=== PATIENT | male | born 1940 | race Caucasian/White ===

== ENCOUNTER 2019-03-02 23:43 | Emergency (ER) | payer MEDICARE, OTHER, SELFPAY ==
[2019-03-02 23:44] VITALS: BP 136/103; PULSE 74; RESP 16; TEMP 37.1; O2SAT 98; BMI 32.5
--- NOTE | 2019-03-03 00:03 | ED.DCSUM_ITS ---
History of Present Illness Chief Complaint: Back Narrative: Patient is a pleasant 78-year-old male who presents with chief complaint of sciatica. He does have a history of prior similar symptoms. Over the past 5 days he complains of right hip pain with radiation down the lateral leg to his foot. Pain is sharp. It is worse with prolonged standing. He did have some relief with icing. He denies any abdominal pain, urinary retention, fecal incontinence, numbness tingling or weakness. He otherwise denies any recent medical illness. No fevers. No vomiting. Past Medical History - Allergies and Home Meds Allergies/Adverse Reactions: Allergies carvedilol Allergy (Verified 03/02/19 23:44) LIGHT HEADED DIZZY SYNCOPE niacin [From Niaspan Extended-Release] Allergy (Verified 03/02/19 23:44) Swelling Primary Care Physician: Domingo Aleman MD [Primary Care Provider] - Past Medical History: - - Diabetes, hypertension, hyperlipidemia Surgical History: - - Heel spur removal. Smoking Status: Never smoker - Family History Maternal Family History: Reports: Heart Disease Paternal Family History: Reports: Diabetes, Heart Disease Review of Systems All systems negative except as indicated General: Denies: Fever Eyes: Denies: Visual changes - bilaterally ENT: Denies: Bilateral ear pain Cardiovascular: Denies: Chest pain Respiratory: Denies: Dyspnea Gastrointestinal: Denies: Abdominal pain, Vomiting, Diarrhea, Constipation Musculoskeletal: Reports: Extremity Pain Neurological: Denies: Headache Hematologic: Denies: Easy bruising Allergy: Denies: Uticaria Physical Exam Vital Signs/Narrative: Vital Signs Temp Pulse Resp BP Pulse Ox 03/02/19 23:44 98.7 F 74 16 136/103 H 98 Inital Vital Signs reviewed: Yes General: Well nourished, Well developed Head: Normocephalic Eyes: EOMI ENT: Moist mucous membranes Neck: Supple Cardiovascular: Regular rate Respiratory: No distress Abdomen: Soft, Nontender Back: Nontender Extremities: - - No reproducible extremity pain, right leg is warm with brisk capillary refill normal sensation to light touch normal strength with dorsiflexion, plantarflexion, extensor hallucis longus, negative straight leg raise Skin: Normal color Neurological: Alert Psychological: Normal affect Diagnostic/Tx/Re-eval - Medical Decision Making Patient's presentation is consistent with a lumbar radiculopathy. He already takes naproxen for arthritis. Will place on a prednisone burst and also treat with tramadol. Patient is diabetic. He has a glucometer but he is not even dias re if it works as he has not used it in years. He was advised of signs and symptoms of hypoglycemia to monitor for and advised if he develops any of the symptoms that his blood sugar checked. We also discussed signs and symptoms that should prompt return to the emergency department for reevaluation including but not limited to symptoms such as paresthesias or weakness. All questions answered at bedside. Patient agreeable to plan. Patient discharged. ED Disposition - Plan for ED Patient: Disposition: Home or Assisted Living Diagnosis: Lumbar radiculopathy Instructions: BACK PAIN w/ SCIATICA Prescriptions: predniSONE tablet 60 mg PO DAILY #12 tab Prescription Printed traMADol [Ultram] 50 mg PO Q6H PRN 3 Days #12 tab PRN Reason: Pain Prescription Printed Referrals: Domingo Aleman MD [Primary Care Provider] -
[2019-03-03] MEDS: traMADol 50 MG Tablet PO (00:06)
[2019-03-03] MEDS: predniSONE 20 MG Tablet 60 MG PO (00:07)
== END 2019-03-03 00:18 | disposition home or self-care (01) ==
LOC: ED 03-03 00:16
PROVIDERS: Emergency Provider Emergency Medicine; Family Provider Family Medicine; PCP Family Medicine
DX: M54.16 Radiculopathy, lumbar region (principal); M25.551 Pain in right hip; E11.9 Type 2 diabetes mellitus without complications; I10 Essential (primary) hypertension; E78.5 Hyperlipidemia, unspecified; Z79.84 Long term (current) use of oral hypoglycemic drugs; Z79.82 Long term (current) use of aspirin; Z79.899 Other long term (current) drug therapy
CPT/HCPCS: 99283

== ENCOUNTER 2019-10-07 18:14 | Emergency (ER) | payer MEDICARE, OTHER, SELFPAY ==
[2019-10-07 18:16] VITALS: BP 133/69; PULSE 68; PULSE 69; RESP 17; TEMP 36.4; O2SAT 98; O2SAT 99; BMI 31.7
[2019-10-07 19:53] LABS: Bacteria 0 SEEN /hpf (None Seen); Mucous, Urine 0 SEEN /hpf (<or=2+); Red Blood Cells-Urine 0 SEEN /hpf (0-5); Squamous Epithelial Cells - UA 0 SEEN /hpf (0-5); White Blood Cells 0 SEEN /hpf (0-5)
[2019-10-07 19:55] LABS: Color, Urine Yellow (Yellow); Glucose, Dipstick Normal (Normal); Ketone-Dipstick Negative (Negative); Leukocyte Esterase-Dipstick Negative /ul (Negative); Nitrite-Dipstick Negative (Negative); Occult Blood-Urine Negative /ul (Negative); Protein-Dipstick Negative (Negative); Urine Bilirubin Dipstick Negative (Negative); Urine Clarity Clear (Clear); Urine Urobilinogen Normal (Normal)
--- NOTE | 2019-10-07 20:01 | ED.VIS.GEN ---
History of Present Illness Chief Complaint: Flank Pain Informant: Patient Narrative: 79-year-old for right-sided back pain. He is concerned that he might have a kidney stone. He has a distant history of this. He states that this is all occurred when he tried to bend over. He did not hear any pops or cracks. He states that the pain is local in the right lumbar paraspinal musculature. He denies any urinary symptoms. He has no diarrhea or constipation. He is not had fever, chills. 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 Smoking Status: Never smoker - Family History Maternal Family History: Reports: Heart Disease Paternal Family History: Reports: Diabetes, Heart Disease Review of Systems General: Denies: Chills, Fever, Sweats Eyes: Denies: Visual changes - bilaterally, Diplopia ENT: Denies: Rhinorrhea, Sore throat Cardiovascular: Denies: Chest pain, Palpitations Respiratory: Denies: Dyspnea, Cough, Dyspnea on exertion Genitourinary: Denies: Dysuria, Hematuria, Frequency Musculoskeletal: Reports: Back pain. Denies: Neck pain, Extremity Pain Skin: Denies: Rash, Wounds Neurological: Denies: Headache, Weakness Psych: Denies: Depression, Anxiety Physical Exam Vital Signs/Narrative: Vital Signs Temp Pulse Resp BP Pulse Ox 10/07/19 18:16 97.6 F L 69 17 133/69 H 99 Inital Vital Signs reviewed: Yes General: Well nourished, Well developed, No Acute Distress Head: Normocephalic, Atraumatic ENT: Moist mucous membranes, No rhinorrhea Cardiovascular: Regular rate, Regular rhythm Respiratory: No distress, CTA bilaterally Abdomen: Soft, Nontender, Nondistended Back: - - Is to palpation right lumbar paraspinal musculature. No CVA tenderness. Extremities: Nontender, No edema Skin: Normal color, No rash Neurological: Alert, Oriented x3 Psychological: Normal affect Diagnostic/Tx/Re-eval Clinical Impression(s) from Imaging Studies Abdomen/Pelvis CT 10/07/19 20:35 IMPRESSION: No evidence of appendicitis, acute intestinal pathology, or acute obstructive uropathy. Electronically Signed: Estuardo Diaz MD at 20:51 EDT Tel , Service support , Laboratory Data 10/07/19 10/07/19 10/07/19 19:40 19:45 19:45 WBC 5.5 RBC 3.63 L Hgb 12.3 L Hct 36.7 L MCV 101.1 H MCH 33.9 H MCHC 33.5 RDW Std Deviation 51.8 H RDW Coeff of Gabe 14.1 Plt Count 257 MPV 10.3 Immature Gran % (Auto) 0.200 Neut % (Auto) 62.7 Lymph % (Auto) 24.1 [place] % (Auto) 7.7 Eos % (Auto) 4.9 Baso % (Auto) 0.4 Absolute Neuts (auto) 3.4 Absolute Lymphs (auto) 1.32 Nucleated RBC % 0 Sodium 136 Potassium 4.1 Chloride 103 Carbon Dioxide 29.0 Anion Gap 4 L BUN 23 H Creatinine 1.35 H Estim Creat Clear Calc 45.10 Est GFR (MDRD) Af Amer 66 Est GFR (MDRD) Non-Af 54 L BUN/Creatinine Ratio 17.0 Glucose 126 H Calcium 8.8 Urine Color Yellow Urine Clarity Clear Urine pH 5.0 Ur Specific [place] 1.020 Urine Protein Negative Urine Glucose (UA) Normal Urine Ketones Negative Urine Occult Blood Negative Urine Nitrite Negative Urine Bilirubin Negative Urine Urobilinogen Normal Ur Leukocyte Esterase Negative Urine RBC 0 SEEN Urine WBC 0 SEEN Ur Squamous Epith Cells 0 SEEN Urine Bacteria 0 SEEN Urine Mucus 0 SEEN - Medical Decision Making Patient presents with back pain which he states he believes is a kidney stone. On examination he does have tenderness to palpation in the right lumbar paraspinal musculature but he does not have CVA tenderness. His renal function is normal. Urinalysis is negative for blood or infection. He did have CT abdomen pelvis without contrast and this does not show any acute process. I feel is pain is likely musculoskeletal. He is counseled on Tylenol ice and stretching. Also him that if his pain is not improving he should follow-up with his PCP to get into physical therapy. He is amenable to this plan. He has no red flag symptoms for cauda equina drome or infectious etiology. Will be discharged home in stable condition. Impression: 1. Lumbar strain ED Disposition - Plan for ED Patient: Disposition: Home or Assisted Living Instructions: ED Flank Pain Uncertain Cause, ED LUMBAR SPRAIN/STRAIN Referrals: Domingo Aleman MD [Primary Care Provider] -
[2019-10-07 20:08] LABS: Absolute Lymphocyte Count 1.32 X10^3/uL (0.83-4.51); Absolute Neutrophil Count 3.4 X10^3/uL (2.0-7.7); Basophil# 0.02 X10^3/uL; Basophil% 0.4 % (0-1); Eosinophil# 0.27 X10^3/uL; Eosinophils% 4.9 % (0-5); Hematocrit 36.7 % (40-54); Hemoglobin 12.3 g/dL (13.0-16.5); Lymphocyte # 1.32 X10^3/ul (4.0); Lymphocyte % 24.1 % (19-41); Mean Corp Hgb Conc 33.5 g/dL (32-36); Mean Corpuscular Hgb 33.9 pg (27.0-32.0); Mean Corpuscular Volume 101.1 fL (80-94); Mean Platelet Vol. 10.3 fl (6.2-12.0); Monocyte# 0.42 X10^3/uL; Monocyte% 7.7 % (0-10); NRBC Flagged by Analyzer 0 % (0-5); Neutrophil # 3.43 X10^3/uL (2.7-7.7); Neutrophil % 62.7 % (47-70); Platelet Count 257 K/mm3 (150-450); RBC Distribution Width CV 14.1 % (11.6-14.6); RBC Distribution Width SD 51.8 fl (35.1-43.9); Red Blood Count 3.63 M/mm3 (4.6-6.2); White Blood Count 5.5 K/mm3 (4.4-11.0)
[2019-10-07 20:25] LABS: Anion Gap 4 (5-15); BUN 23 mg/dL (7-18); Calcium,Total 8.8 mg/dL (8.5-10.1); Chloride 103 mmol/L (98-107); Creatinine, Serum 1.35 mg/dL (0.70-1.30); EST Glomerular Filtration Rate 54 mL/min (>60); Est Glom Filt Rate - Afr Amer 66 mL/min (>60); Glucose 126 mg/dL (74-106); Potassium 4.1 mmol/L (3.5-5.1); Sodium Level 136 mmol/L (136-145)
[2019-10-07] MEDS: Ondansetron 4 MG/2 ML Vial IM (20:30)
[2019-10-07] MEDS: Ketorolac 15 MG/ML Vial IV (20:30)
--- NOTE | 2019-10-07 20:35 | CT_ITS ---
STUDY: CT ABDOMEN AND PELVIS WITHOUT CONTRAST REASON FOR EXAM: Male, 79 years old. RIGHT FLANK PAIN. hx of kidney stones RADIATION DOSAGE (If Supplied By Facility): CTDIvol = ( 13.60 ) mGy, DLP = ( 760.92 ) mGycm TECHNIQUE: Transaxial images were obtained from the dome of the diaphragm to the symphysis pubis without oral contrast, and without intravenous contrast. Sagittal and coronal images were reconstructed. Individualized dose optimization techniques were used for this CT. COMPARISON: None. FINDINGS: The visualized lung bases are unremarkable. The visualized portions of the heart are within normal limits. Normal liver. Normal gallbladder and extrahepatic biliary system. Normal spleen. Normal pancreas. Normal bilateral adrenal glands. Normal right kidney. Normal left kidney. Normal visualized stomach. Normal small intestine. Normal colon. The appendix is visualized and appears normal. Normal abdominal aorta. Normal inferior vena cava. Normal retroperitoneum. Normal urinary bladder. Prostatomegaly and prostate calcifications. Normal abdominal wall. There are diffuse degenerative changes of the visualized lumbar spine. CT/Abdomen/Pelvis without Cont IMPRESSION: No evidence of appendicitis, acute intestinal pathology, or acute obstructive uropathy. Electronically Signed: Estuardo Diaz MD at 20:51 EDT Tel , Service support ,
[2019-10-07 21:20] VITALS: BP 133/69; PULSE 70; RESP 17; O2SAT 99
== END 2019-10-07 21:21 | disposition home or self-care (01) ==
PROVIDERS: Emergency Provider Student in an Organized Health Care Education/Training Program; PCP Family Medicine
DX: S39.012A Strain of muscle, fascia and tendon of lower back, initial encounter (principal); X50.1XXA Overexertion from prolonged static or awkward postures, initial encounter; Y93.9 Activity, unspecified; Y92.9 Unspecified place or not applicable; Y99.9 Unspecified external cause status; E11.9 Type 2 diabetes mellitus without complications; Z79.84 Long term (current) use of oral hypoglycemic drugs; Z79.82 Long term (current) use of aspirin; Z79.899 Other long term (current) drug therapy; Z79.4 Long term (current) use of insulin; Z87.442 Personal history of urinary calculi
CPT/HCPCS: 74176; 80048; 81001; 85025; 96361; 96372; 96374; 99283; J7030; A4216; J2405

== ENCOUNTER 2023-10-07 22:23 | Observation (INO) | payer MEDICARE, OTHER, SELFPAY ==
[2023-10-07 22:24] VITALS: BP 161/71; PULSE 70; RESP 18; TEMP 36.4; O2SAT 100; BMI 29.8
--- NOTE | 2023-10-07 22:30 | EKG12_ITS ---
Test Reason : CP Blood Pressure : / mmHG Vent. Rate : 071 BPM Atrial Rate : 071 BPM P-R Int : 206 ms QRS Dur : 126 ms QT Int : 416 ms P-R-T Axes : 074 -59 006 degrees QTc Int : 452 ms Normal sinus rhythm Left axis deviation Right bundle branch block Minimal voltage criteria for LVH, may be normal variant ( R in aVL ) Inferior infarct , age undetermined Abnormal ECG Confirmed by ANDRES SPARROW, LORI ([id number]), script editor CAM NAIR ([id number]) on 10/10/2023 6:40:03 AM Referred By: LULU Confirmed By:YVONNE CAMPOS MD
[2023-10-07 22:55] LABS: Absolute Lymphocyte Count 2.89 X10^3/uL (0.83-4.51); Basophil# 0.03 X10^3/uL; Basophil% 0.4 % (0-1); Eosinophil# 0.43 X10^3/uL; Eosinophils% 6.4 % (0-5); Hematocrit 34.8 % (40-54); Hemoglobin 11.9 g/dL (13.0-16.5); Lymphocyte # 2.89 X10^3/ul (0.83-4.51); Lymphocyte % 42.7 % (19-41); Mean Corp Hgb Conc 34.2 g/dL (32-36); Mean Corpuscular Hgb 34.6 pg (27.0-32.0); Mean Corpuscular Volume 101.2 fL (80-94); Mean Platelet Vol. 10.5 fl (6.2-12.0); Monocyte# 0.43 X10^3/uL; Monocyte% 6.4 % (0-10); NRBC Flagged by Analyzer 0 % (0-5); Neutrophil # 2.98 X10^3/uL (2.7-7.7); Platelet Count 198 K/mm3 (150-450); RBC Distribution Width CV 14.2 % (11.6-14.6); RBC Distribution Width SD 52.8 fl (35.1-43.9); Red Blood Count 3.44 M/mm3 (4.6-6.2); White Blood Count 6.8 K/mm3 (4.4-11.0)
--- NOTE | 2023-10-07 22:58 | ED.VIS.CHEST ---
HPI History of Present Illness Chief Complaint: Chest Pain Narrative Narrative: 83-year-old male past medical history of hypertension and diabetes, but was taken off his diabetic medication, presents with chest pain that began at around 5:30 in the evening. He states that he ate dinner around 430 then an hour later began having indigestion type symptoms and left-sided chest pain. He states the pain radiates to his left shoulder. He denies any nausea or vomiting, no diaphoresis or shortness of breath. No radiation to his back. However, his states that he has been having intermittent episodes of lightheadedness, and has been having problems with chest pain recently that has been intermittent. His blood pressure was as high as the 170s systolic today. As she states he has been having problems with a lightheadedness, dizziness, and chest pain previously, she called the squad this evening. He has not had a stress test recently, and he denies having any problems with coronary artery disease or stenting. No exacerbating or alleviating factors. [facility] Medical History Diabetes Home Medications ?Medication ?Instructions ?Recorded ?Last Taken ?Type allopurinol 300 mg tablet 300 mg PO DAILY gout 06/03/13 06/07/16 History simvastatin 40 mg tablet 40 mg PO QHS cholesterol 06/03/13 06/07/16 History naproxen 250 mg tablet 375 mg PO BID PRN PRN Pain 06/04/14 Unknown History aspirin 81 mg chewable tablet 81 mg PO DAILY@0800 06/08/16 06/08/16 History cyanocobalamin (vitamin B-12) 1,000 mcg PO DAILY 06/08/16 06/07/16 History 1,000 mcg tablet (Vitamin B-12) lisinopril 20 1 ea PO DAILY 06/08/16 06/08/16 History mg-hydrochlorothiazide 12.5 mg tablet (Zestoretic) omega-3 fatty acids-fish oil 340 1 ea PO DAILY 03/03/19 Unknown History mg-1,000 mg capsule Allergy/AdvReac Type Severity Reaction Status Date / Time carvedilol Allergy LIGHT Verified 10/07/23 22:27 HEADED DIZZY SYNCOPE niacin (From Niaspan Allergy Swelling Verified 10/07/23 22:27 Extended-Release) Social History Smoking Status: Never smoker ROS ROS ED ROS Narrative Constitutional: No fever, no chills. Elevated blood pressure this evening. HEENT: No sore throat. No neck pain. No loss of vision. No rhinorrhea. Cardiovascular: Positive chest pain radiating to left shoulder, left pectoral pain. Indigestion type symptoms. No palpitations. No pedal edema. Respiratory: No cough, no shortness of breath. Abdominal: No abdominal pain. No nausea. No vomiting. Genitourinary: No dysuria. No hematuria. Musculoskeletal: No myalgias. Left shoulder arthralgias. Neurologic: No headaches. No dizziness. Positive intermittent lightheadedness. Skin: No rash. No change in color. Psychiatric: No depression. No anxiety. EXAM Physical Exam Narrative Exam Narrative: Afebrile. Vital signs noted. HEENT: Normocephalic. Atraumatic. PERRL, EOMI. Neck soft and supple. No point tenderness or step off. Cardiovascular: Regular rate and rhythm. No murmurs, rubs, or gallops appreciated. Respiratory: No tachypnea. Lungs clear to auscultation bilaterally. Gastrointestinal: Abdomen soft, nontender, with normoactive bowel sounds. No rebound or guarding. Neurological: Awake. Alert. Nonfocal, nonlateralizing. Skin: No rash. Normal color. No pallor. Musculoskeletal: No pedal edema. Full range of motion extremities. Const Vital Signs: 10/07/23 22:24 10/07/23 22:49 10/07/23 23:24 Temperature 97.6 F L Temperature Source Oral Pulse Rate 70 65 Respiratory Rate 18 17 Blood Pressure 161/71 H 141/61 H Blood Pressure Mean 101 87 Pulse Ox 100 99 Oxygen Delivery Method Room Air Room Air Room Air 10/08/23 00:00 Temperature Temperature Source Pulse Rate 63 Respiratory Rate 17 Blood Pressure 131/69 H Blood Pressure Mean 87 Pulse Ox 99 Oxygen Delivery Method Heart Score History: Moderately Suspicious ECG: Normal Age: >/= 65 years Risk Factors: 1 or 2 Risk Factors Troponin: </= Normal Limit Score: 4 MDM MDM MDM Narrative Medical decision making narrative: Concern is for ACS versus pneumonia versus pneumothorax versus musculus skeletal shoulder pain. Patient does have risk factors. He has elevated blood pressure here in the emergency department of 161/71. EKG was obtained and interpreted by myself independently as normal sinus rhythm at 71 bpm with a right bundle branch block but no acute ST changes. No STEMI. Patient was administered aspirin. Chest pain workup was pursued. I reviewed his prior ED visits, the last time he had chest pain and he had a stress test was not 2013, approximately 10 years ago. I reviewed his laboratory work and he has normal white count of 6.8 with hemoglobin 11.9, platelet count normal at 198. He will be given nitroglycerin as needed as well to lower his blood pressure and treat his chest pain. In review of his remaining laboratory work his glucose is elevated at 115 with sodium slightly low at 134 which I think is nonspecific, potassium 3.8, chloride normal at 101. BUN normal at 16 with creatinine 1.07. Magnesium slightly low at 1.4. Initial high-sensitivity troponin is 58. Chest x-ray 1 view interpreted by myself independently shows no evidence of an acute process. I reviewed the radiology report which confirms my independent interpretation. His is concerned because he has been lightheaded and reportedly had a syncopal episode recently. Given his age and risk factors and the fact that he has not had stress testing in 10 years, I will discuss patient with Dr. Gauthier for observation. Patient is in stable condition. History & Record Review Discussion w/independent historian: Patient Additional record(s) reviewed:: Prior ED visit (No stress test since 2013) Lab Data Attestation: I reviewed the patient's lab results. Labs: Laboratory Results - last 24 hr 10/07/23 22:33 WBC 6.8 RBC 3.44 L Hgb 11.9 L Hct 34.8 L MCV 101.2 H MCH 34.6 H MCHC 34.2 RDW Std Deviation 52.8 H RDW Coeff of Gabe 14.2 Plt Count 198 MPV 10.5 Immature Gran % (Auto) 0.100 Neut % (Auto) 44.0 L Lymph % (Auto) 42.7 H [place] % (Auto) 6.4 Eos % (Auto) 6.4 H Baso % (Auto) 0.4 Absolute Neuts (auto) 3.0 Absolute Lymphs (auto) 2.89 Nucleated RBC % 0 Sodium 134 L Potassium 3.8 Chloride 101 Carbon Dioxide 26.0 Anion Gap 7 BUN 16 Creatinine 1.07 Estim Creat Clear Calc 61.40 Est GFR (MDRD) Af Amer 85 Est GFR (MDRD) Non-Af 70 BUN/Creatinine Ratio 15.0 Glucose 115 H Calcium 8.3 L Magnesium 1.4 L Troponin I High Sens 58 Radiography Diagnostic Testing: Clinical Impression(s) from Imaging Studies Chest X-Ray 10/07/23 23:05 IMPRESSION: No acute radiographic abnormalities. Electronically Signed: Lowell Brandt MD at 23:29 EDT , Discharge Plan Dx/Rx/DC Orders Clinical Impression: Chest pain, Hypertension Disposition Disposition: Acute Care [facility]
--- NOTE | 2023-10-07 23:05 | RAD_ITS ---
INDICATION: chest pain EXAMINATION/TECHNIQUE: X-RAY - XR Chest 1 View COMPARISON: 06/04/2014. FINDINGS: The lungs are clear. Tortuous and calcified thoracic aorta. The heart is mildly enlarged. No pleural effusion or pneumothorax. Degenerative changes of the thoracic spine. RAD/Chest 1 View (Portable) IMPRESSION: No acute radiographic abnormalities. Electronically Signed: Lowell Brandt MD at 23:29 EDT ,
[2023-10-07 23:14] LABS: Anion Gap 7 (5-15); BUN 16 mg/dL (7-18); Calcium,Total 8.3 mg/dL (8.5-10.1); Chloride 101 mmol/L (98-107); Creatinine, Serum 1.07 mg/dL (0.70-1.30); EST Glomerular Filtration Rate 70 mL/min (>60); Est Glom Filt Rate - Afr Amer 85 mL/min (>60); Glucose 115 mg/dL (74-106); Magnesium 1.4 mg/dL (1.6-2.6); Potassium 3.8 mmol/L (3.5-5.1); Sodium Level 134 mmol/L (136-145); Troponin-I HS (w/2H Reflex) 58 pg/mL (3.0-78.0)
[2023-10-07 23:24] VITALS: BP 141/61; PULSE 65; RESP 17; O2SAT 99
[2023-10-07] MEDS: Aspirin 81 MG TAB.CHEW 324 MG PO (23:26)
[2023-10-08] VITALS (8 sets, daily range): BP systolic 129–154; BP diastolic 58–72; PULSE 60–72; RESP 14–19; TEMP 36.6–37; O2SAT 99–100; BMI 29.9
--- NOTE | 2023-10-08 00:29 | PCM.HP.STD ---
HPI - General General Date of Admission: 10/08/23 Date of Service: 10/08/23 Chief Complaint: Chest pain HPI Narrative VERO PIMENTEL, is a 83 M who presented to the emergency department at [facility] on 10/07/2023 with a chief complaint of chest pain. He reported that it started about 6 PM. He had eaten at 5 PM and the sensation was an indigestion type feeling. He noted that it did radiate into his left arm and he actually is denying any actual chest pain more just indigestion with left arm pain. He indicated it felt like a pulled muscle. The pain there is now resolved and he is complaining of only some mild pain in his left shoulder blade at this time. Pain is not pleuritic. He does have a history of diabetes, hypertension, and hyperlipidemia. He has noted that his legs have been a little bit swollen over the last 2 to 4 weeks and he is typically not swollen and that his blood pressure has been more labile and difficult to control lately. He also indicates that he has been more fatigued lately. He states he is remotely had a cardiac catheterization at which time he was told he had clean coronaries and should never have a cardiac problem. He states this was done over at one of the [facility] but it has been a long time. He is diet controlled with regards to his diabetes. Patient did have an abnormal stress test in 2013. Current vital signs show temperature of 97.8, blood pressure 129/59 however he was hypertensive on presentation, pulse is 62, respirations are 19 and oxygen saturation is 100% on room air. His CBC is overall unremarkable. Chemistry panel shows mild hyponatremia with a sodium of 134, normal creatinine and a serum glucose of 115. Magnesium level is 1.4. Initial troponin was 58. EKG is normal sinus rhythm with normal intervals and a right bundle branch block with poor R wave progression showing left axis deviation but no ST-T wave changes concerning for acute ischemia. Chest x-ray is unremarkable for any acute findings. Given his symptomatology and his past medical history it was felt prudent to admit him as observation for stress test as long as his enzymes did escalate. [facility] Medical History Dyslipidemia GERD (gastroesophageal reflux disease) HTN (hypertension) Diabetes Home Medications ?Medication ?Instructions ?Recorded ?Last Taken ?Type allopurinol 300 mg tablet 300 mg PO DAILY gout 06/03/13 06/07/16 History simvastatin 40 mg tablet 40 mg PO QHS cholesterol 06/03/13 06/07/16 History naproxen 250 mg tablet 375 mg PO BID PRN PRN Pain 06/04/14 Unknown History aspirin 81 mg chewable tablet 81 mg PO DAILY@0800 06/08/16 06/08/16 History cyanocobalamin (vitamin B-12) 1,000 mcg PO DAILY 06/08/16 06/07/16 History 1,000 mcg tablet (Vitamin B-12) lisinopril 20 1 ea PO DAILY 06/08/16 06/08/16 History mg-hydrochlorothiazide 12.5 mg tablet (Zestoretic) omega-3 fatty acids-fish oil 340 1 ea PO DAILY 03/03/19 Unknown History mg-1,000 mg capsule Allergy/AdvReac Type Severity Reaction Status Date / Time carvedilol Allergy LIGHT Verified 10/07/23 22:27 HEADED DIZZY SYNCOPE niacin (From Niaspan Allergy Swelling Verified 10/07/23 22:27 Extended-Release) Family History (Updated 10/08/23 @ 00:[address] Roseanna Gauthier DO) Other Diabetes Hypertension no surgical history Social History (Updated 10/08/23 @ 00:[address] Roseanna Gauthier DO) household members: spouse housing: house Smoking Status: Never smoker alcohol intake: never substance use type: does not use ROS Constitutional Constitutional: Reports fatigue; Denies anorexia, change in weight, chills, fever(s), malaise, night sweats, weakness or other Eyes Eyes: Denies blurry vision, change in eye color, change in vision, discharge from eye(s), double vision, erythema, eye pain, loss of vision or other ENT HEENT: Denies abnormal hearing, dysphagia, ear pain, epistaxis, headache(s), hearing loss, nasal congestion, nasal discharge, post nasal drip, sinus pressure, sore throat or other Cardiovascular Cardiovascular: Reports chest pain and edema; Denies claudication, dyspnea on exertion, lightheadedness, orthopnea, palpitations, paroxysmal nocturnal dyspnea, rapid heart rate, syncope or other Respiratory/Chest Respiratory/Chest: Denies cough, dyspnea, excessive phlegm production, hemoptysis, productive cough, shortness of breath at rest, shortness of breath with exertion, wheezing or other Gastrointestinal Gastrointestinal: Reports dyspepsia; Denies abdominal pain, coffee ground emesis, constipation, diarrhea, hematemesis, hematochezia, loose stools, melena, nausea, vomiting or other Genitourinary Genitourinary: Denies burning urination, difficulty urinating, dysuria, hematuria, nocturia, urinary frequency, urinary hesitancy, urinary incontinence, urinary urgency or other Musculoskeletal Musculoskeletal: Reports back pain; Denies arthralgias, joint pain, joint stiffness, joint swelling, myalgias, neck pain or other Neurologic Neurologic: Denies abnormal gait, abnormal speech, confusion, disequilibrium, dizziness, focal weakness, headache(s), numbness, paresthesias, seizure-like activity, seizures, syncope, tingling, tremor(s) or other Psychiatric Psychiatric: Denies anxiety, depression, homicidal ideation, suicidal ideation or other Endocrine Endocrinology: Denies change in body appearance, cold intolerance, excessive sweating, heat intolerance, polydipsia, polyuria or other Hematologic/Lymphatic Hematologic/Lymphatic: Denies anemia, easy bleeding, easy bruising, lymphadenopathy or other Allergic/Immunologic Allergic/Immunologic: Denies rhinitis, hives, eczemia, asthma or other Vital Signs Vital Signs Vital Signs: 10/07/23 22:24 10/07/23 22:49 10/07/23 23:24 Temperature 97.6 F L Temperature Source Oral Pulse Rate 70 65 Respiratory Rate 18 17 Blood Pressure 161/71 H 141/61 H Blood Pressure Mean 101 87 Pulse Ox 100 99 Oxygen Delivery Method Room Air Room Air Room Air 10/08/23 00:00 Temperature Temperature Source Pulse Rate 63 Respiratory Rate 17 Blood Pressure 131/69 H Blood Pressure Mean 87 Pulse Ox 99 Oxygen Delivery Method Weight Weight: 94.4 kg Body Mass Index (BMI) 29.8 Physical Exam Const alert, oriented x3, no apparent distress, healthy appearing and well nourished; Negative for average body habitus Constitutional Narrative: Overweight, elderly, white male, lying in bed, appears comfortable, nontoxic General Appearance: cooperative HEENT normocephalic, head/scalp atraumatic and moist oral mucous membranes; Negative for hearing grossly normal bilaterally HEENT Narrative: Mild hearing loss, Mallampati is 2, no thrush, dentition is poor Eyes PERRL, EOMs intact bilaterally and conjunctivae normal Eyes Narrative: No scleral icterus Neck no lymphadenopathy and supple Neck Narrative: Trachea midline, no thyroid enlargement Resp normal respiratory effort, no retractions, no use of accessory muscles and clear to auscultation bilaterally Auscultation: Negative for rales, rhonchi or wheezes Cardio regular rate, regular rhythm, S1 normal heart sound, S2 normal heart sound, no murmurs, no rub, no gallops and no clicks GI normal to inspection, nondistended, normoactive bowel sounds, soft to palpation and non-tender Extremity Extremity Narrative: 1+ bilateral lower extremity pitting edema, no cyanosis or clubbing Skin no rashes or lesions noted, no wounds, skin turgor normal, no jaundice, no petechiae and no mottling Neuro oriented x3, CN's II-XII intact bilaterally, moves all extremities and no focal motor deficits Speech: speech normal Psych affect normal Psych Narrative: Very pleasant, eye contact is good, patient interacts appropriately Results Lab / Micro Data 10/07/23 22:33 10/07/23 22:33 Labs: Laboratory Results - last 24 hr 10/07/23 22:33: WBC 6.8, RBC 3.44 L, Hgb 11.9 L, Hct 34.8 L, MCV 101.2 H, MCH 34.6 H, MCHC 34.2, RDW Std Deviation 52.8 H, RDW Coeff of Gabe 14.2, Plt Count 198, MPV 10.5, Immature Gran % (Auto) 0.100, Neut % (Auto) 44.0 L, Lymph % (Auto) 42.7 H, [place] % (Auto) 6.4, Eos % (Auto) 6.4 H, Baso % (Auto) 0.4, Absolute Neuts (auto) 3.0, Absolute Lymphs (auto) 2.89, Nucleated RBC % 0, Sodium 134 L, Potassium 3.8, Chloride 101, Carbon Dioxide 26.0, Anion Gap 7, BUN 16, Creatinine 1.07, Estim Creat Clear Calc 61.40, Est GFR (MDRD) Af Amer 85, Est GFR (MDRD) Non-Af 70, BUN/Creatinine Ratio 15.0, Glucose 115 H, Calcium 8.3 L, Magnesium 1.4 L, Troponin I High Sens 58 Imaging Radiology Impression Chest X-Ray 10/07/23 23:05 IMPRESSION: No acute radiographic abnormalities. Electronically Signed: Lowell Brandt MD at 23:29 EDT , Assessment & Plan Assessment/Plan (1) Chest pain: (2) Hypomagnesemia: (3) Edema: (4) Fatigue: PLAN: Plan Chest pain -Now resolved -Has had previous abnormal stress test in 2013--> will repeat for comparison and if any changes may need further workup -Did have previous cardiac catheterization at [facility] at that time with no found obstructive disease -Cycle cardiac enzymes -Continue home aspirin -Hold off on beta-stephan now as patient has previous adverse reaction to carvedilol -Continue home lisinopril/HCTZ -Diabetes is diet controlled -Will check hemoglobin A1c -Continue home statin -Check lipids -If cardiac enzymes trend up may need cardiology involvement but for now we will plan on stress test Edema -New within the last 2 to 4 weeks -Check echocardiogram -May be related to the above Hypomagnesemia -2 g mag bolus -Recheck in a.m. DM-2 -Diet controlled -N.p.o. for now for stress test in a.m. -When diet starts we will start cardiac/carb controlled diet Essential hypertension/hyperlipidemia -Continue home antihypertensives -Continue home statin -Workup as above History of gout -Continue home allopurinol DVT prophylaxis -Subcu Lovenox 40 mg daily CODE STATUS Full but unverified Charges/Coding Visit Charges Inpatient E&M: 35552 Init Hosp L2
[2023-10-08 00:42] LABS: Reflex Troponin-HS? (from REC) Y
[2023-10-08 01:04] LABS: Troponin-I HS 64 pg/mL (3.0-78.0)
--- NOTE | 2023-10-08 01:13 | EKG12_ITS ---
Test Reason : CP ADMISSION Blood Pressure : / mmHG Vent. Rate : 068 BPM Atrial Rate : 068 BPM P-R Int : 232 ms QRS Dur : 152 ms QT Int : 448 ms P-R-T Axes : 066 -64 063 degrees QTc Int : 476 ms Sinus rhythm with 1st degree A-V block Right bundle branch block Left anterior fascicular block Bifascicular block Abnormal ECG When compared with ECG of 07-OCT-2023 22:26, MANUAL COMPARISON REQUIRED, DATA IS UNCONFIRMED Confirmed by ANDRES SPARROW, LORI ([id number]), newspaper editor CAM NAIR ([id number]) on 10/10/2023 7:19:27 AM Referred By: DERRICK Confirmed By:YVONNE CAMPOS MD
[2023-10-08] MEDS: Magnesium Sulfate 2 GM in Dextrose 5%-Water (100mL Bag) 100 ML IV (01:42)
[2023-10-08 01:47] LABS: Hemoglobin A1c 5.8 % (3.8-5.6)
[2023-10-08 04:26] LABS: Hematocrit 31.6 % (40-54); Hemoglobin 10.9 g/dL (13.0-16.5); Mean Corp Hgb Conc 34.5 g/dL (32-36); Mean Corpuscular Hgb 34.5 pg (27.0-32.0); Mean Platelet Vol. 10.1 fl (6.2-12.0); Platelet Count 183 K/mm3 (150-450); Red Blood Count 3.16 M/mm3 (4.6-6.2); White Blood Count 6.3 K/mm3 (4.4-11.0)
[2023-10-08 04:44] LABS: Troponin-I HS 86 pg/mL (3.0-78.0)
[2023-10-08 04:52] LABS: AST(SGOT) 31 U/L (15-37); Alanine Aminotransfer ALT/SGPT 26 U/L (16-61); Albumin, Serum 2.7 g/dL (3.2-5.0); Alkaline Phosphatase 42 U/L (45-117); Anion Gap 6 (5-15); BUN 16 mg/dL (7-18); BUN/Creat Ratio 15.1 RATIO (10-20); Chloride 103 mmol/L (98-107); Cholesterol 85 mg/dL (200); Creatinine, Serum 1.06 mg/dL (0.70-1.30); EST Glomerular Filtration Rate 71 mL/min (>60); Est Glom Filt Rate - Afr Amer 86 mL/min (>60); Globulin 2.7 g/dL (2.2-4.2); Glucose 122 mg/dL (74-106); High Density Lipoprotein 33 mg/dL; Magnesium 1.9 mg/dL (1.6-2.6); Phosphorus 3.2 mg/dL (2.5-4.9); Potassium 3.6 mmol/L (3.5-5.1); Protein, Total 5.4 g/dL (6.4-8.2); Sodium Level 134 mmol/L (136-145); Triglycerides 84 mg/dL; Very Low Density Lipoprotein 17 mg/dL (5-40)
[2023-10-08] MEDS: Lisinopril 20 MG Tablet PO (05:20)
[2023-10-08] MEDS: Aspirin 81 MG TAB.CHEW PO (05:20)
--- NOTE | 2023-10-08 05:55 | ECHOD_ITS ---
Reason For Study: CHEST PAIN Procedure This was a 2D Doppler, Color Flow transthoracic echocardiogram. Exam performed in department. Left Ventricle Normal LV size. The estimated ejection fraction is 65-70 %. Diastolic function is indeterminate. No regional wall motion abnormalities noted. Right Ventricle Normal RV size. Normal systolic function. Atria The left and right atria are normal. No doppler evidence for ASD. Mitral Valve There is no mitral valve stenosis. Trivial mitral valve insufficiency. Tricuspid Valve There is no tricuspid stenosis. Trivial tricuspid valve insufficiency. Pulmonary artery systolic pressure is 30-35 mmHg. Aortic Valve Trisinus/trileaflet aortic valve. Aortic sclerosis, no stenosis. There is no aortic stenosis. No aortic valve insufficiency. Pulmonic Valve There is no pulmonic valvular stenosis. No pulmonic valve insufficiency. Great Vessels Normal aortic root. Pericardium/Pleural No pericardial effusion. MMode/2D Measurements & Calculations LVIDd: 4.8 cm IVSd: 1.3 cm Ao root diam: 3.9 cm LVIDs: 2.7 cm LVPWd: 1.3 cm RVDd: 2.9 cm FS: 42.5 % LAV(MOD-bp): 65.3 ml LVAd ap4: 29.8 cm2 SV(MOD-sp4): 63.6 ml LAV(MOD-bp) Indexed: 30.8 ml/m2 LVLd ap4: 8.0 cm LAV(MOD-sp2): 66.5 ml EDV(MOD-sp4): 89.9 ml LAV(MOD-sp4): 60.5 ml EDV(sp4-el): 93.9 ml LVAs ap4: 14.3 cm2 LVLs ap4: 6.6 cm ESV(MOD-sp4): 26.3 ml ESV(sp4-el): 26.3 ml EF(MOD-sp4): 70.8 % EF(sp4-el): 72.0 % SV(sp4-el): 67.6 ml LA A4 area: 20.2 cm2 LA dimension(2D): 4.2 cm RA A4 area: 16.7 cm2 TAPSE: 2.1 cm Time Measurements MV dec time: 0.20 sec Doppler Measurements & Calculations MV E max domingo: 108.2 cm/sec Lat Peak E' [place]: 8.2 cm/sec Med Peak E' [place]: 5.7 cm/sec MV A max domingo: 101.0 cm/sec E/E' lat: 13.3 E/E' med: 18.9 MV E/A: 1.1 MV V2 max: 129.4 cm/sec MV P1/2t max domingo: 128.8 cm/sec Ao V2 max: 172.5 cm/sec MV max P.7 mmHg MV P1/2t: 69.8 msec Ao max P.9 mmHg MV V2 mean: 74.3 cm/sec Ao V2 mean: 113.4 cm/sec MV mean P.5 mmHg MV dec slope: 540.1 cm/sec2 Ao mean P.8 mmHg MV V2 VTI: 38.4 cm MVA(P1/2t): 3.1 cm2 Ao V2 VTI: 39.1 cm AV (velocity ratio): 0.69 LV V1 max: 112.4 cm/sec PA V2 max: 104.2 cm/sec TR max domingo: 259.9 cm/sec LV V1 max P.1 mmHg PA V2 mean: 65.2 cm/sec TR max P.0 mmHg LV V1 mean P.9 mmHg LV V1 mean: 81.5 cm/sec LV V1 VTI: 27.2 cm ECHO/Echo Complete Interpretation Summary The estimated ejection fraction is 65-70 %. Diastolic function is indeterminate. Trivial mitral valve insufficiency. Ordering Physician: Roseanna Gauthier Referring Physician: Domingo Aleman Performed By: Linda Joaquin, MELLY, RVT
[2023-10-08 06:37] LABS: Troponin-I HS 81 pg/mL (3.0-78.0)
--- NOTE | 2023-10-08 07:50 | PCM.PN.HOSP ---
Reason for Visit Reason for Visit: Diagnoses Hypomagnesemia (10/08/23) Chest pain, unspecified (10/08/23) Other fatigue (10/08/23) Edema, unspecified (10/08/23) Subjective Subjective Patient is an 83-year-old gentleman admitted with chest pain Objective Data Objective Data Vital Signs: Vital Signs Temp Pulse Resp BP Pulse Ox O2 Del Method 98.6 F 61 14 147/63 H 100 Room Air 10/08/23 05:18 10/08/23 05:18 10/08/23 05:18 10/08/23 05:18 10/08/23 05:18 10/08/23 05:18 Oxygen Delivery Method Room Air Weight: 92 kg Body Mass Index (BMI) 29.9 Intake & Output: Intake and Output for Last 24 Hours 10/06/23 10/07/23 10/08/23 23:59 23:59 23:59 Intake Total 104 / 104 Balance 104 / 104 Lab / Micro Data 10/08/23 04:14 10/08/23 04:14 Labs: Laboratory Results - last 24 hr 10/07/23 22:33: WBC 6.8, RBC 3.44 L, Hgb 11.9 L, Hct 34.8 L, MCV 101.2 H, MCH 34.6 H, MCHC 34.2, RDW Std Deviation 52.8 H, RDW Coeff of Gabe 14.2, Plt Count 198, MPV 10.5, Immature Gran % (Auto) 0.100, Neut % (Auto) 44.0 L, Lymph % (Auto) 42.7 H, [place] % (Auto) 6.4, Eos % (Auto) 6.4 H, Baso % (Auto) 0.4, Absolute Neuts (auto) 3.0, Absolute Lymphs (auto) 2.89, Nucleated RBC % 0, Sodium 134 L, Potassium 3.8, Chloride 101, Carbon Dioxide 26.0, Anion Gap 7, BUN 16, Creatinine 1.07, Estim Creat Clear Calc 61.40, Est GFR (MDRD) Af Amer 85, Est GFR (MDRD) Non-Af 70, BUN/Creatinine Ratio 15.0, Glucose 115 H, Hemoglobin A1c 5.8 H, Calcium 8.3 L, Magnesium 1.4 L, Troponin I High Sens 58 10/08/23 00:38: Troponin I High Sens 64 10/08/23 04:14: WBC 6.3, RBC 3.16 L, Hgb 10.9 L, Hct 31.6 L, MCV 100.0 H, MCH 34.5 H, MCHC 34.5, RDW Std Deviation 52.0 H, RDW Coeff of Gabe 14.0, Plt Count 183, MPV 10.1, Sodium 134 L, Potassium 3.6, Chloride 103, Carbon Dioxide 25.0, Anion Gap 6, BUN 16, Creatinine 1.06, Estim Creat Clear Calc 60.20, Est GFR (MDRD) Af Amer 86, Est GFR (MDRD) Non-Af 71, BUN/Creatinine Ratio 15.1, Glucose 122 H, Calcium 8.0 L, Phosphorus 3.2, Magnesium 1.9, Total Bilirubin 0.40, AST 31, ALT 26, Alkaline Phosphatase 42 L, Troponin I High Sens 86 H, Total Protein 5.4 L, Albumin 2.7 L, Globulin 2.7, Albumin/Globulin Ratio 1.0, Triglycerides 84, Cholesterol 85, LDL Cholesterol 35, VLDL Cholesterol 17, HDL Cholesterol 33 L, TSH 5.320 H 10/08/23 06:13: Troponin I High Sens 81 H Radiography Diagnostic Testing: Radiology Impression Chest X-Ray 10/07/23 23:05 IMPRESSION: No acute radiographic abnormalities. Electronically Signed: Lowell Brandt MD at 23:29 EDT , Physical Exam Narrative GENERAL: cooperative HEENT: Atraumatic; normocephalic EYES; Anicteric, Normal Conjunctiva NECK; supple, normal thyroid, RESPIRATORY: Diminished to auscultation CARDIOVASCULAR: Regular S1 S2, GI: soft, normoactive bowel sounds, : No Renal angle tenderness; EXTREMITIES: edema, no clubbing, MUSCULOSKELETAL: no muscle wasting NEURO: Awake; no lateralizing signs. SKIN: No Rash PSYCH; Flat affect Assessment & Plan Assessment/Plan (1) Chest pain: (2) Hypomagnesemia: (3) Edema: (4) Fatigue: PLAN: Plan Patient is an 83-year-old gentleman admitted with chest pain 1. Chest Pain: Placed on a monitored bed; rule out for Myocardial infarction with serial cardiac enzymes and EKGs. If negative, rule out Myocardial Ischemia with nuclear medicine stress test. ? Patient nuclear stress test was negative for stress induced ischemia. 2. Acute congestive heart failure with preserved ejection fraction ? Patient presented with peripheral edema was placed on diuretic therapy 2D echo obtained demonstrated EF of 65 to 70% with indeterminate diastolic dysfunction with trivial mitral valve insufficiency. Patient was discharged on furosemide 40 mg daily 3. Hypertension ? Blood pressure controlled, home medications continued with dose adjustment as needed ? Patient was on lisinopril/HCTZ this was discontinued prescription written for lisinopril and furosemide as documented above 4. Hypomagnesemia ? Corrected per protocol repeat labs ordered in a.m. for follow-up 5. Dyslipidemia ?Patient is on statin therapy, continued at home dose 6. Diabetes mellitus type 2 ? Controlled with diet please on Accu-Cheks before meals and at bedtime with sliding scale coverage 7. History of gout ? Symptoms controlled on naproxen as needed as well as allopurinol 8. DVT prophylaxis ? On enoxaparin Time spent in the patient's overall evaluation,decision-making process, review of diagnostic data, adjustment of management, discussion with other providers, nursing nursing and ancillary staff involved in patient's care documentation, 40 Minutes
--- NOTE | 2023-10-08 11:17 | STRESSREP_ITS ---
Stress Test Report Date: 10/08/2023 Procedure: Pharmacologic stress nuclear imaging study Indications: Chest pain Consent: Per the patient Procedure: The patient underwent pharmacologic (Regadenoson) evaluation with a peak heart rate of 76 beats per minute (55%predicted maximal heart rate) and a peak blood pressure of 130/72 mmHg. The baseline ECG demonstrated []. EKG during lexiscan infusion revealed []. EKG post infusion revealed [] [There were no cardiac dysrhythmias pretest, during pharmacologic infusion, or recovery]. [There was no complaint of chest discomfort during pharmacologic infusion or recovery]. The examination was discontinued secondary to completion of protocol. Impression: 1. Lexiscan stress test test is[] for Lexiscan infusion induced EKG changes of ischemia. 2. Lexiscan stress test test is[] for Lexiscan infusion induced chest pain. 3. Results of the nuclear portion of the test is as below Myocardial perfusion imaging study: Technique: The patient was injected with [] millicuries of technetium 99m Cardiolite and subsequently rest SPECT Cardiolite nuclear imaging was obtained in the horizontal long, vertical long, and short axis views. The patient underwent pharmacologic [Regadenoson 0.4mg] evaluation. Please see above for details. The patient was injected with [] millicuries of technetium 99m Cardiolite and subsequently stress SPECT Cardiolite nuclear imaging was obtained in the horizontal long, vertical long, and short axis views. A gated Cardiolite study at peak stress was obtained. Interpretation: Rest and stress SPECT Cardiolite nuclear imaging status post realignment, normalization, and attenuation correction demonstrate []. Gated images reveal[]. The reported LVEF is []%. Impression: 1. There is []. 2. Estimated ejection fraction is []. This note was generated with [email or web address] software. It may contain incorrect words, spelling, and punctuation that were not noted in checking the note before signing.
--- NOTE | 2023-10-08 11:17 | STRESSREP ---
Stress Test Report Date: 10/08/2023 Procedure: Pharmacologic stress nuclear imaging study Indications: Chest pain Consent: Per the patient Procedure: The patient underwent pharmacologic (Regadenoson) evaluation with a peak heart rate of 76 beats per minute (55%predicted maximal heart rate) and a peak blood pressure of 130/72 mmHg. The baseline ECG demonstrated normal sinus rhythm, right bundle branch block, left anterior fascicular block. EKG during lexiscan infusion revealed no significant ischemic changes. EKG post infusion revealed no significant ischemic changes [There were no cardiac dysrhythmias pretest, during pharmacologic infusion, or recovery]. [There was no complaint of chest discomfort during pharmacologic infusion or recovery]. The examination was discontinued secondary to completion of protocol. Impression: 1. Lexiscan stress test test is negative for Lexiscan infusion induced EKG changes of ischemia. 2. Lexiscan stress test test is negative for Lexiscan infusion induced chest pain. 3. Results of the nuclear portion of the test is as below Myocardial perfusion imaging study: Technique: The patient was injected with 12 millicuries of technetium 99m Cardiolite and subsequently rest SPECT Cardiolite nuclear imaging was obtained in the horizontal long, vertical long, and short axis views. The patient underwent pharmacologic [Regadenoson 0.4mg] evaluation. Please see above for details. The patient was injected with 36 millicuries of technetium 99m Cardiolite and subsequently stress SPECT Cardiolite nuclear imaging was obtained in the horizontal long, vertical long, and short axis views. A gated Cardiolite study at peak stress was obtained. Interpretation: Rest and stress SPECT Cardiolite nuclear imaging status post realignment, normalization, and attenuation correction demonstrate no evidence of significant ischemia or infarction. Gated images reveal no significant regional wall motion abnormalities. The reported LVEF is 69%. Impression: 1. There is no evidence of significant ischemia or infarction. 2. Estimated ejection fraction is 69%. This note was generated with MyCrowdation software. It may contain incorrect words, spelling, and punctuation that were not noted in checking the note before signing.
[2023-10-08] MEDS: 0.9% Saline Lock 10 ML Syringe IV (12:11)
[2023-10-08] MEDS: hydroCHLOROthiazide 12.5mg 12.5 MG PO (12:11)
[2023-10-08] MEDS: Furosemide 40 MG/4 ML Vial IV (12:11)
[2023-10-08] MEDS: Allopurinol 300 MG Tablet PO (12:11)
--- NOTE | 2023-10-08 12:47 | DS.PCM_ITS ---
Providers Date of Admission: 10/08/23 Date of Discharge: 10/08/23 Primary Care Physician: Dr. Domingo Aleman MD Reason For Visit: CHEST PAIN Diagnosis Discharge Diagnosis (1) Chest pain: Status: Acute Code(s): R07.9 - Chest pain, unspecified (2) Hypomagnesemia: Status: Acute Code(s): E83.42 - Hypomagnesemia (3) Edema: Status: Acute Code(s): R60.9 - Edema, unspecified (4) Fatigue: Status: Acute Code(s): R53.83 - Other fatigue Plan Patient is an 83-year-old gentleman admitted with chest pain 1. Chest Pain: Placed on a monitored bed; rule out for Myocardial infarction with serial cardiac enzymes and EKGs. If negative, rule out Myocardial Ischemia with nuclear medicine stress test. ? Patient nuclear stress test was negative for stress induced ischemia. 2. Acute congestive heart failure with preserved ejection fraction ? Patient presented with peripheral edema was placed on diuretic therapy 2D echo obtained demonstrated EF of 65 to 70% with indeterminate diastolic dysfunction with trivial mitral valve insufficiency. Patient was discharged on furosemide 40 mg daily 3. Hypertension ? Blood pressure controlled, home medications continued with dose adjustment as needed ? Patient was on lisinopril/HCTZ this was discontinued prescription written for lisinopril and furosemide as documented above 4. Hypomagnesemia ? Corrected per protocol repeat labs ordered in a.m. for follow-up 5. Dyslipidemia ?Patient is on statin therapy, continued at home dose 6. Diabetes mellitus type 2 ? Controlled with diet please on Accu-Cheks before meals and at bedtime with sliding scale coverage 7. History of gout ? Symptoms controlled on naproxen as needed as well as allopurinol 8. DVT prophylaxis ? On enoxaparin Time spent in the patient's overall evaluation,decision-making process, review of diagnostic data, adjustment of management, discussion with other providers, nursing nursing and ancillary staff involved in patient's care documentation, 40 Minutes Medications at Discharge Home Medications allopurinol 300 mg tablet 300 mg PO DAILY gout 06/03/13 simvastatin 40 mg tablet 40 mg PO QHS cholesterol 06/03/13 naproxen 250 mg tablet 375 mg PO BID PRN PRN Pain 06/04/14 aspirin 81 mg chewable tablet 81 mg PO DAILY@0800 06/08/16 cyanocobalamin (vitamin B-12) 1,000 mcg tablet (Vitamin B-12) 1,000 mcg PO DAILY 06/08/16 omega-3 fatty acids-fish oil 340 mg-1,000 mg capsule 1 ea PO DAILY 03/03/19 furosemide 40 mg tablet (Lasix) 40 mg PO DAILY #30 tabs 10/08/23 lisinopril 20 mg tablet 20 mg PO DAILY 60 days #60 tabs 10/08/23 magnesium oxide 200 mg PO DAILY #30 tabs 10/08/23 potassium chloride 20 mEq tablet,extended release(part/cryst) 20 meq PO DAILY #30 tabs 10/08/23 Weight / BMI Weight Weight: 92 kg Body Mass Index (BMI) 29.9 ABG / Lab / Microbiology Data 10/08/23 04:14 10/08/23 04:14 Laboratory: Laboratory Results - last 24 hr 10/07/23 22:33: WBC 6.8, RBC 3.44 L, Hgb 11.9 L, Hct 34.8 L, MCV 101.2 H, MCH 34.6 H, MCHC 34.2, RDW Std Deviation 52.8 H, RDW Coeff of Gabe 14.2, Plt Count 198, MPV 10.5, Immature Gran % (Auto) 0.100, Neut % (Auto) 44.0 L, Lymph % (Auto) 42.7 H, [place] % (Auto) 6.4, Eos % (Auto) 6.4 H, Baso % (Auto) 0.4, Absolute Neuts (auto) 3.0, Absolute Lymphs (auto) 2.89, Nucleated RBC % 0, S odium 134 L, Potassium 3.8, Chloride 101, Carbon Dioxide 26.0, Anion Gap 7, BUN 16, Creatinine 1.07, Estim Creat Clear Calc 61.40, Est GFR (MDRD) Af Amer 85, Est GFR (MDRD) Non-Af 70, BUN/Creatinine Ratio 15.0, Glucose 115 H, Hemoglobin A1c 5.8 H, Calcium 8.3 L, Magnesium 1.4 L, Troponin I High Sens 58 10/08/23 00:38: Troponin I High Sens 64 10/08/23 04:14: WBC 6.3, RBC 3.16 L, Hgb 10.9 L, Hct 31.6 L, MCV 100.0 H, MCH 34.5 H, MCHC 34.5, RDW Std Deviation 52.0 H, RDW Coeff of Gabe 14.0, Plt Count 183, MPV 10.1, Sodium 134 L, Potassium 3.6, Chloride 103, Carbon Dioxide 25.0, Anion Gap 6, BUN 16, Creatinine 1.06, Estim Creat Clear Calc 60.20, Est GFR (MDRD) Af Amer 86, Est GFR (MDRD) Non-Af 71, BUN/Creatinine Ratio 15.1, Glucose 122 H, Calcium 8.0 L, Phosphorus 3.2, Magnesium 1.9, Total Bilirubin 0.40, AST 31, ALT 26, Alkaline Phosphatase 42 L, Troponin I High Sens 86 H, Total Protein 5.4 L, Albumin 2.7 L, Globulin 2.7, Albumin/Globulin Ratio 1.0, Triglycerides 84, Cholesterol 85, LDL Cholesterol 35, VLDL Cholesterol 17, HDL Cholesterol 33 L, TSH 5.320 H 10/08/23 06:13: Troponin I High Sens 81 H Radiography Diagnostic Testing: Radiology Impression Chest X-Ray 10/07/23 23:05 IMPRESSION: No acute radiographic abnormalities. Electronically Signed: Lowell Brandt MD at 23:29 EDT , Echocardiogram 10/08/23 05:55 Interpretation Summary The estimated ejection fraction is 65-70 %. Diastolic function is indeterminate. Trivial mitral valve insufficiency. Ordering Physician: Roseanna Gauthier Referring Physician: Domingo Aleman Performed By: Linda Joaquin, MELLY, RVT D/C Instructions Discharge Diet: 8 Cup Fluid Restriction and 2000 mg Sodium Diet Discharge Activity: Return to Normal Activity Call your doctor if you observe: Fever of 101 or Higher, Shortness of breath, Fainting spells and Chest pain Meaningful Use Info Meaningful Use Meaningful Use Diagnoses (Choose all that apply): CHF CHF MICHELLE/ARB ordered at discharge?: Yes Documented LVEF (%): 65 Ischemic Stroke Statin Dosing Therapy Reference: STATIN DOSE THERAPY REFERENCE: * Patients > 75 years receive moderate or high dose statin therapy. * Patients 75 years or YOUNGER should receive HIGH intensity statin dose unless contraindicated. You will be required to document reason for non-treatment if statin daily dose does not meet guidelines. HIGH DOSE STATIN THERAPY DAILY Atorvastatin > than or = to 40 mg Rosuvastatin > than or = to 20 mg Amlodipine + Atorvastatin > than or = to 2.5/40 mg Ezetimibe + Simvastatin 10/80 mg Simvastatin 80mg Discharge Plan Admission Admit Date/Time: 10/08/23 00:23 Attending Provider: Dwight Barrow Primary Care Provider: Domingo Alemna Consulting Providers: Roseanna Gauthier Discharge Orders/Prescriptions Prescriptions: New lisinopril 20 mg Tablet 20 mg PO DAILY 60 Days Qty: 60 0RF furosemide [Lasix] 40 mg tablet 40 mg PO DAILY Qty: 30 0RF potassium chloride 20 mEq tablet,ER particles/crystals 20 meq PO DAILY Qty: 30 0RF magnesium oxide 200 mg magnesium tablet 200 mg PO DAILY Qty: 30 0RF Continued simvastatin 40 MG tablet 40 mg PO QHS Patient Comments: cholesterol lowering allopurinol 300 MG tablet 300 mg PO DAILY Patient Comments: gout naproxen 250 MG tablet 375 mg PO BID PRN PRN (Reason: Pain) Patient Comments: PAIN cyanocobalamin (vitamin B-12) [Vitamin B-12] 1,000 MCG tablet 1,000 mcg PO DAILY aspirin 81 MG tablet,chewable 81 mg PO DAILY@0800 omega-3 fatty acids-fish oil 1 EACH capsule 1 ea PO DAILY Discontinued lisinopril-hydrochlorothiazide [Zestoretic] 1 EACH tablet 1 ea PO DAILY Referrals / Follow Up: Domingo Aleman MD [Primary Care Provider] - Within 2 Weeks Disposition Disposition (needs filled in before D/C Order can be placed): Home, Self Care Charges/Coding Visit Charges Inpatient E&M: 53935 Disch Hosp >30min
--- NOTE | 2023-10-08 14:02 | CASEMGMT ---
Patient has order for discharge. RN CM in to discuss needs at discharge. Patient denies needs or help at discharge. Patient had no further questions or concerns.
--- NOTE | 2023-10-08 14:32 | PHA.DC_ITS ---
Pharmacy [place] Med Reconciliation Pharmacy Service has performed discharge medication reconciliation for this patient. Medication education papers prepared, patient discharged when counseling was attempted. The patient's discharge medication list was reviewed for discrepancies and discrepancies were resolved. Medications at Discharge Home Medications allopurinol 300 mg tablet 300 mg PO DAILY gout 06/03/13 simvastatin 40 mg tablet 40 mg PO QHS cholesterol 06/03/13 naproxen 250 mg tablet 375 mg PO BID PRN PRN Pain 06/04/14 aspirin 81 mg chewable tablet 81 mg PO DAILY@0800 [facility] 06/08/16 cyanocobalamin (vitamin B-12) 1,000 mcg tablet (Vitamin B-12) 1,000 mcg PO DAILY vitamin 06/08/16 omega-3 fatty acids-fish oil 340 mg-1,000 mg capsule 1 ea PO DAILY supplement 03/03/19 furosemide 40 mg tablet (Lasix) 40 mg PO DAILY #30 tabs 10/08/23 lisinopril 20 mg tablet 20 mg PO DAILY 60 days #60 tabs 10/08/23 magnesium oxide 200 mg PO DAILY #30 tabs 10/08/23 potassium chloride 20 mEq tablet,extended release(part/cryst) 20 meq PO DAILY #30 tabs 10/08/23
--- NOTE | 2023-10-08 14:45 | CHAPLAIN ---
Type of Pastoral Visit _x__ Initial Visit ___ Follow-up Visit ___ On-call Visit ___ General Patient Visit ___ Spiritual Assessment ___ Family Conference ___ Bereavement ___ Rapid Response ___ Code Blue ___ Other (describe below) Pastoral Care Referral From _x__ Patient ___ Family ___ Nurse ___ Physician ___ Meteorological Engineer ___ [employer] Player ___ Other (describe below) Sacrament/Intervention _x__ Active listening ___ Anointing ___ Voodoo ___ Bereavement ___ Communion ___ Helen exploration ___ ___ Life review ___ Prayer ___ Reconciliation ___ Sacrament of Sick _x__ Supportive presence ___ Wedding ___ Other (describe below) Pastoral Comments patient and spouse are in the room and welcoming; pt states that he is fine but spouse gives more details about reason for coming to the hospital; pt agrees that it was a good idea for testing but that everything is looking pretty good right now; pt expects to be discharged as soon as the last test results come back; pt says no other needs at this time
== END 2023-10-08 13:37 | disposition home or self-care (01) ==
LOC: ED 23:45 → PCU 10-08 00:39
PROVIDERS: Admitting Provider Internal Medicine; Emergency Provider Emergency Medicine; PCP Family Medicine; Visit Provider Internal Medicine
DX: R07.89 Other chest pain (principal); I11.0 Hypertensive heart disease with heart failure; I50.31 Acute diastolic (congestive) heart failure; E11.9 Type 2 diabetes mellitus without complications; R60.9 Edema, unspecified; E87.1 Hypo-osmolality and hyponatremia; E78.5 Hyperlipidemia, unspecified; E83.42 Hypomagnesemia; M25.512 Pain in left shoulder; I45.10 Unspecified right bundle-branch block; R53.83 Other fatigue; M10.9 Gout, unspecified; Z79.899 Other long term (current) drug therapy; R42 Dizziness and giddiness; Z79.82 Long term (current) use of aspirin; K21.9 Gastro-esophageal reflux disease without esophagitis
CPT/HCPCS: 36415; 71045; 78452; 80048; 80053; 80061; 83036; 83735; 84100; 84443; 84484; 85025; 85027; 93005; 93017; 93306; 97802; 99221; 99285; A9500; A4216; G0378; J1940; J2785

== ENCOUNTER → 2023-11-15 | Outpatient (CLI) | payer MEDICARE, OTHER, SELFPAY ==
--- NOTE | 2023-11-15 11:32 | RAD_ITS ---
STUDY: X-RAY - CERVICAL SPINE REASON FOR EXAM: Male, 83 years old. CERVICAL SPRAIN TECHNIQUE: 5 view(s) of the cervical spine were obtained. COMPARISON: None FINDINGS: Normal anterior atlantoaxial articulation. Normal odontoid process. There is reversal of the normal cervical lordosis. 2 mm of anterolisthesis of C3 on C4. 2 mm retrolisthesis of C4 on C5 and C5 on C6. There is multi-level endplate spondylosis. There is multi-level degenerative disc disease with multilevel disc space narrowing. Normal visualized intervertebral neuroforamina. The soft tissue structures are unremarkable. RAD/Cerv Spine 4 or 5 Views IMPRESSION: Degenerative disc disease with a reversal of the normal lordotic curvature in subluxation. Electronically Signed: Zane Santillan MD at 20:01 EDT ,
== END | disposition home or self-care (01) ==
LOC: RAD 11:31
PROVIDERS: PCP Family Medicine; Referring Provider Chiropractor; Visit Provider Chiropractor
DX: S13.9XXA Sprain of joints and ligaments of unspecified parts of neck, initial encounter (principal); X58.XXXA Exposure to other specified factors, initial encounter
CPT/HCPCS: 72050